=== PATIENT | female | born 1985 | race Caucasian/White ===

== ENCOUNTER 2022-10-07 11:22 | Emergency (ER) | payer SELFPAY ==
[2022-10-07 12:25] LABS: Magnesium 2.3 mg/dL (1.6-2.4); Potassium 3.7 mEq/L (3.5-5.1)
--- NOTE | 2022-10-07 13:17 | RAD REPORT ---
EXAM DESCRIPTION: USExtrem Venous W Compress Bil10/07/2022 1:01 pm CLINICAL HISTORY: Leg swelling COMPARISON: none FINDINGS: The common femoral, superficial femoral, greater saphenous, popliteal and posterior tibial veins bilaterally are compressible and demonstrate augmentation. Doppler demonstrates good flow. Grayscale, color and spectral analysis performed on all vessels IMPRESSION: No evidence of deep venous thrombosis involving either lower extremity.
[2022-10-07 13:21] LABS: Specific Gravity > 1.030 (1.005-1.030); Urine Bacteria <20 /HPF (<20); Urine Bilirubin NEGATIVE (Negative); Urine Blood Negative (Negative); Urine Clarity Turbid (Clear); Urine Color Yellow (Yellow); Urine Glucose NEGATIVE (Negative); Urine Mucus 1+ /HPF (None Seen); Urine Protein TRACE (Negative); Urine RBC <5 /HPF (None Seen); Urine Urobilinogen 1+ (Normal); Urine pH 6.5 (5.0-7.0)
--- NOTE | 2022-10-07 13:26 | EDPHYS ---
Physician Documentation [facility] Name: Ernestina Gomez Age: 37 yrs Sex: Female : 1985 Arrival Date: 10/07/2022 Time: 11:22 Bed 13 Private MD: SANJU Physician Kvng Callejas HPI: 10/07 11:56 This 37 yrs old Female presents to ER via Ambulatory with complaints of Leg Swelling - sb4 both legs. 11:56 37-year-old female with no past medical history states she woke up this morning with sb4 bilateral swelling in her lower legs. She states they are mildly painful when she stands on them, but fine when she is laying down. She denies any trauma, history of blood clots, shortness of breath, excessive sodium intake, recent medication changes. Historical: - Allergies: 11:39 No Known Allergies; nj1 - PMHx: 11:39 None; nj1 - PSHx: 11:39 None; nj1 - Immunization history:: Client reports having NOT received the Covid vaccine. - Social history:: Smoking status: Patient reports the use of cigarette tobacco products, denies chronic smoking, but will smoke occasionally. ROS: 11:56 Constitutional: Negative for fever, chills, and weight loss, Eyes: Negative for injury, sb4 pain, redness, and discharge, Cardiovascular: Negative for chest pain, palpitations, and edema, Respiratory: Negative for shortness of breath, cough, wheezing, and pleuritic chest pain, Back: Negative for injury and pain. 11:56 MS/extremity: Positive for swelling, of the right leg and left leg. 11:56 Skin: Negative for cellulitis. Exam: 11:56 Constitutional: This is a well developed, well nourished patient who is awake, alert, sb4 and in no acute distress. Head/Face: Normocephalic, atraumatic. Cardiovascular: Regular rate and rhythm with a normal S1 and S2. Respiratory: Lungs have equal breath sounds bilaterally, clear to auscultation and percussion. No rales, rhonchi or wheezes noted. No increased work of breathing, no retractions or nasal flaring. Skin: Warm, dry with normal turgor. Normal color with no rashes, no lesions, and no evidence of cellulitis. 11:56 Musculoskeletal/extremity: nonpitting edema to bilateral lower extremities. Vital Signs: 11:36 BP 129 / 83; Pulse 77; Resp 18; Temp 98.1; Pulse Ox 100% ; Weight 145.15 kg; Height 5 nj1 ft. 8 in. ; Pain 6/10; 12:55 BP 112 / 77; Pulse 61; Resp 17 S; Pulse Ox 100% on R/A; kc6 13:38 BP 105 / 51; Pulse 71; Resp 16 S; Pulse Ox 100% on R/A; kc6 11:36 Body Mass Index 48.66 (145.15 kg, 172.72 cm) nj1 11:36 Pain Scale: Adult nj1 MDM: 11:27 Patient medically screened. sb4 11:56 Differential Diagnosis DVT, generalized edema, lymphadema, congestive heart failure, sb4 hyppernatremia. 13:29 Data reviewed: vital signs, nurses notes, lab test result(s), electrolytes, urinalysis, sb4 radiologic studies, ultrasound, I have discussed the patient's presentation/case with the attending Emergency Department Physician; and as a result, I will discharge patient. Counseling: I had a detailed discussion with the patient and/or guardian regarding: the historical points, exam findings, and any diagnostic results supporting the discharge/admit diagnosis, lab results, radiology results, the need for outpatient follow up, Nephrology. ED course: Counseled patient on ways to reduce swelling in her legs- decreased salt intake, exercise, compression, elevation and advised her to follow up with nephrology if the swelling persists as she did have trace protein in her urine as well. . 10/07 11:49 Order name: BMP; Complete Time: 12:26 sb4 10/07 11:49 Order name: Magnesium; Complete Time: 12:26 sb4 10/07 12:28 Order name: UAM; Complete Time: 13:22 sb4 10/07 11:49 Order name: Extrem Venous W Compression Vimal US; Complete Time: 13:18 sb4 Administered Medications: No medications were administered Disposition Summary: 10/07/22 13:26 Discharge Ordered Location: Home sb4 Problem: new sb4 Symptoms: are unchanged sb4 Condition: Stable sb4 Diagnosis - Localized edema sb4 - Proteinuria, unspecified sb4 Followup: sb4 - With: - When: 1 week - Reason: Further diagnostic work-up, Recheck today's complaints, Re-evaluation by your physician Discharge Instructions: - Discharge Summary Sheet sb4 - Edema, [id number] sb4 Forms: - Medication Reconciliation Form sb4 - Thank You Letter sb4 - Antibiotic Education sb4 - Prescription Opioid Use sb4 - [email or web address] sb4 Signatures: Dispatcher [employer] Diana Sy PA-C PA-C sb4 Jackie Norris RN RN nj1
--- NOTE | 2022-10-07 13:26 | ER ---
Nurse's Notes [facility] Name: Ernestina Gomez Age: 37 yrs Sex: Female : 1985 Arrival Date: 10/07/2022 Time: 11:22 Bed 13 Private MD: Diagnosis: Localized edema;Proteinuria, unspecified Presentation: 10/07 11:36 Chief complaint: Patient states: Legs swollen, painful, they feel tight. Coronavirus nj1 screen: Vaccine status: Patient reports being unvaccinated. Ebola Screen: Patient denies travel to an Ebola-affected area in the 21 days before illness onset. Initial Sepsis Screen: Does the patient meet any 2 criteria? No. Patient's initial sepsis screen is negative. Does the patient have a suspected source of infection? No. Patient's initial sepsis screen is negative. Risk Assessment: Do you want to hurt yourself or someone else? Patient reports no desire to harm self or others. Onset of symptoms was October 07, 2022. 11:36 Method Of Arrival: Ambulatory [facility] 11:36 Acuity: ROSS 3 nj1 Historical: - Allergies: 11:39 No Known Allergies; nj1 - PMHx: 11:39 None; nj1 - PSHx: 11:39 None; nj1 - Immunization history:: Client reports having NOT received the Covid vaccine. - Social history:: Smoking status: Patient reports the use of cigarette tobacco products, denies chronic smoking, but will smoke occasionally. Screenin:58 [facility] ED Fall Risk Assessment (Adult) History of falling in the last 3 months, kc6 including since admission No falls in past 3 months (0 pts) Confusion or Disorientation No (0 pts) Intoxicated or Sedated No (0 pts) Impaired Gait No (0 pts) Mobility Assist Device Used No (0 pt) Altered Elimination No (0 pt) Score/Fall Risk Level 0 - 2 = Low Risk Oriented to surroundings, Maintained a safe environment, Educated pt \T\ family on fall prevention, incl call for assistance when getting out of bed, Assessed \T\ reinforced patient's understanding of fall precautions, Hourly rounding (assess needs \T\ fall precautionary measures) done. Abuse screen: Denies threats or abuse. Denies injuries from another. Nutritional screening: No deficits noted. Tuberculosis screening: No symptoms or risk factors identified. Assessment: 11:59 General: Appears in no apparent distress. comfortable, obese, Behavior is calm, kc6 cooperative, appropriate for age. Pain: Denies pain. Neuro: Randall Agitation-Sedation Scale (RASS): 0 - Alert and Calm Level of Consciousness is awake, alert, obeys commands, Oriented to person, place, time, situation, Appropriate for age. Cardiovascular: Denies chest pain, shortness of breath, Capillary refill < 3 seconds. Respiratory: Airway is patent Trachea midline Respiratory effort is even, unlabored, Respiratory pattern is regular, symmetrical. GI: Reports diarrhea, Patient currently denies nausea, vomiting. : No signs and/or symptoms were reported regarding the genitourinary system. EENT: No signs and/or symptoms were reported regarding the EENT system. Derm: No signs and/or symptoms reported regarding the dermatologic system. Skin is intact, Skin is pink, warm \T\ dry. Musculoskeletal: No signs and/or symptoms reported regarding the musculoskeletal system. Circulation, motion, and sensation intact. Capillary refill < 3 seconds, Range of motion: intact in all extremities. 12:55 Reassessment: Patient appears in no apparent distress at this time. No changes from kc6 previously documented assessment. Patient and/or family updated on plan of care and expected duration. Pain level reassessed. Patient is alert, oriented x 3, equal unlabored respirations, skin warm/dry/pink. 13:38 Reassessment: Patient appears in no apparent distress at this time. No changes from kc6 previously documented assessment. Patient and/or family updated on plan of care and expected duration. Pain level reassessed. Patient is alert, oriented x 3, equal unlabored respirations, skin warm/dry/pink. Vital Signs: 11:36 BP 129 / 83; Pulse 77; Resp 18; Temp 98.1; Pulse Ox 100% ; Weight 145.15 kg; Height 5 [facility] ft. 8 in. ; Pain 6/10; 12:55 BP 112 / 77; Pulse 61; Resp 17 S; Pulse Ox 100% on R/A; kc6 13:38 BP 105 / 51; Pulse 71; Resp 16 S; Pulse Ox 100% on R/A; kc6 11:36 Body Mass Index 48.66 (145.15 kg, 172.72 cm) [facility] 11:36 Pain Scale: Adult nj1 ED Course: 11:25 Patient arrived in ED. im 11:27 Diana Rivera PA-C is PHCP. sb4 11:27 Kvng Callejas MD is Attending Physician. sb4 11:39 Triage completed. nj1 11:40 Arm band placed on left wrist. nj1 11:42 Judith Tsai, SHAYY is Primary Nurse. kc6 11:58 Inserted saline lock: 20 gauge in right antecubital area, using aseptic technique. kc6 Blood collected. 11:59 Patient has correct armband on for positive identification. Bed in low position. Call kc6 light in reach. Side rails up X 1. Adult w/ patient. 13:03 Extrem Venous W Compression Vimal US In Process Unspecified. EDMS 13:26 Edgard Espinal DO is Referral Physician. sb4 13:39 No provider procedures requiring assistance completed. IV discontinued, intact, kc6 bleeding controlled, No redness/swelling at site. Pressure dressing applied. Administered Medications: No medications were administered Medication: 13:39 VIS not applicable for this client. kc6 Outcome: 13:26 Discharge ordered by . sb4 13:39 Discharged to home ambulatory, with family. kc6 13:39 Condition: stable 13:39 Discharge instructions given to patient, Instructed on discharge instructions, follow up and referral plans. Demonstrated understanding of instructions, follow-up care. 13:46 Patient left the ED. kc6 Signatures: Dispatcher [employer] EDMS Judith Tsai, SHAYY RN kc6 Diana Rivera PA-C PA-C sb4 Jackie Norris RN RN nj1 Salma Alexis im Corrections: (The following items were deleted from the chart) 11:40 11:36 Pulse 77bpm; Resp 18bpm; Pulse Ox 100%; Temp 98.1F; 145.15 kg; Height 5 ft. 8 nj1 in.; BMI: 48.6; Pain 10, Adult; nj1
[2022-10-07 13:54] VITALS: TEMP 98.1; O2SAT 100
[2022-10-07 13:57] VITALS: BP 105/51
== END 2022-10-07 13:46 | disposition home or self-care (01) ==
LOC: ER 11:22
DX: R60.0 Localized edema (principal); R80.9 Proteinuria, unspecified; Z28.310 Unvaccinated for COVID-19
CPT/HCPCS: 36415; 80048; 81001; 83735; 93970; 99284